=== PATIENT | male | born 1975 | race Caucasian/White ===

== ENCOUNTER 2019-11-14 16:13 | Emergency (ER) | payer BC ==
[2019-11-14] MEDS ORDERED: Azithromycin 250 MG Tab PO ONE (16:33)
--- NOTE | 2019-11-14 16:36 | EDM.PDOC ---
ED HPI GENERAL MEDICAL PROBLEM - General Chief Complaint: ENT Problem Stated Complaint: SINUS INFECTION, SEVERE COUGH Time Seen by Provider: 11/14/19 16:16 - History of Present Illness INITIAL COMMENTS - FREE TEXT/NARRATIVE: History of present illness: 44-year-old male presenting with cough and nasal congestion for the last 10 days that has been gradually progressing and developed difficulty breathing over the last few days. History of sleep apnea. No known ill exposures. No one else is sick at home. He does smoke. No chest pain. No fevers or chills. Review of systems: As per history of present illness and below otherwise all systems reviewed and negative. Past medical history: As per history of present illness and as reviewed below otherwise noncontributory. Sleep apnea Surgical history: As per history of present illness and as reviewed below otherwise noncontributory. Social history: No reported history of drug or alcohol abuse. Pack per day Family history: As per history of present illness and as reviewed below otherwise noncontributory. Physical exam: GEN: no acute distress, well appearing HEENT: Atraumatic, normocephalic, mucous membranes moist, nasal congestion, Neck: supple, nontender, trachea midline. Lungs: No respiratory distress. Mild expiratory wheezes Heart: Mildly tachycardic Abdomen: Soft, nondistended, nontender. Back: nontender Extremities: Atraumatic. Neurovascularly intact. Neuro: Awake, alert, oriented. Neuro Exam nonfocal. Skin: warm, dry, no lesions Diagnostics: [] Therapeutics: [] MDM: Impression: [] Plan: [] Definitive disposition and diagnosis as appropriate pending reevaluation and review of above. - Related Data Allergies Allergy/AdvReac Type Severity Reaction Status Date / Time No Known Allergies Allergy Verified 11/14/19 16:24 Home Meds: Home Meds Albuterol Sulfate [Proair Respiclick] 90 mcg IH Q6HR PRN #1 canister 11/14/19 [ Rx] Azithromycin [Zithromax] 250 mg PO DAILY #6 tab 11/14/19 [Rx] predniSONE [Prednisone] 60 mg PO DAILY 5 Days #15 tablet 11/14/19 [Rx] ED ROS ENT - Review of Systems Review Of Systems: See Below (See dictation) ED EXAM, ENT - Physical Exam Exam: See Below (See dictation) Course - Vital Signs Last Recorded V/S: Last Vital Signs Temp 96.6 F L 11/14/19 16:22 Pulse 109 H 11/14/19 16:22 Resp 22 H 11/14/19 16:22 BP 188/91 H 11/14/19 16:22 Pulse Ox 97 11/14/19 16:22 - Orders/Labs/Meds Labs: Laboratory Tests 11/14/19 Range/Units 17:13 SARS-CoV-2 RNA (RT-PCR) NEGATIVE (NEGATIVE) Meds: Medications Discontinued Medications Generic Name Dose Route Start Last Admin Trade Name Freq PRN Reason Stop Dose Admin Azithromycin 500 mg 11/14/19 16:33 11/14/19 17:07 Zithromax PO 11/14/19 16:34 500 mg ONETIME ONE Administration - Re-Assessments/Exams Free Text/Narrative Re-Assessment/Exam: 11/14/19 18:17 Patient in no acute distress. Chest x-ray negative., Raines virus swab negative. Will discharge. Departure - Departure Time of Disposition: 18:19 Disposition: Home, Self-Care 01 Clinical Impression: Bronchitis - Discharge Information Prescriptions: Albuterol Sulfate [Proair Respiclick] 90 mcg IH Q6HR PRN #1 canister PRN Reason: Dyspnea Azithromycin [Zithromax] 250 mg PO DAILY #6 tab predniSONE [Prednisone] 60 mg PO DAILY 5 Days #15 tablet Instructions: Shortness of Breath, Adult, Asak-[id number], Upper Respiratory Infection, Adult, Rgeq-[id number], Steps to Quit Smoking, Kvfw-[id number], How to Use a Metered Dose Inhaler, Acute Bronchitis, Adult, Ugmw-[id number], How to Use a Dry Powder Inhaler, Oprb-cu-Eaue Referrals: PCP,None [Primary Care Provider] - Forms: ED Department Discharge Additional Instructions: The following information is given to patients seen in the emergency department who are being discharged to home. This information is to outline your options for follow-up care. We provide all patients seen in our emergency department with a follow-up referral. The need for follow-up, as well as the timing and circumstances, are variable depending upon the specifics of your emergency department visit. If you don't have a primary care physician on staff, we will provide you with a referral. We always advise you to contact your personal physician following an emergency department visit to inform them of the circumstance of the visit and for follow-up with them and/or the need for any referrals to a consulting specialist. The emergency department will also refer you to a specialist when appropriate. This referral assures that you have the opportunity for follow-up care with a specialist. All of these measure are taken in an effort to provide you with optimal care, which includes your follow-up. Under all circumstances we always encourage you to contact your private physician who remains a resource for coordinating your care. When calling for follow-up care, please make the office aware that this follow-up is from your recent emergency room visit. If for any reason you are refused follow-up, please contact the [facility] Emergency Department at and asked to speak to the emergency department charge nurse. [facility] [address] [place] [id number] [address] Sepsis Event Note (ED) - Evaluation Sepsis Screening Result: No Definite Risk - Focused Exam Vital Signs: Vital Signs Temp Pulse Resp BP Pulse Ox 11/14/19 16:22 96.6 F L 109 H 22 H 188/91 H 97
--- NOTE | 2019-11-14 17:06 | CR ---
Chest: Portable view of the chest was obtained. Comparison: No previous chest x-ray. Heart is generous in size believed to be accentuated from portable technique as well as accentuated from patient body habitus. Upper mediastinum is normal. Lungs are clear with no acute parenchymal change. Bony structures are grossly intact. Impression: 1. Nothing acute is appreciated on portable chest x-ray. Diagnostic code #2 Study was dictated in MDT
== END 2019-11-14 18:30 | disposition home or self-care (01) ==
LOC: MW.ED 16:13
DX: J40 Bronchitis, not specified as acute or chronic (principal); Z20.828 Contact with and (suspected) exposure to other viral communicable diseases; Z79.899 Other long term (current) drug therapy
CPT/HCPCS: 71045; 87635; 99285; A9270; U0002

== ENCOUNTER 2020-11-03 23:08 | Emergency (ER) | payer BC ==
--- NOTE | 2020-11-03 23:27 | EDM.PDOC ---
ED HPI GENERAL MEDICAL PROBLEM - General Chief Complaint: ENT Problem Stated Complaint: SORE THROAT Time Seen by Provider: 11/03/20 23:16 - History of Present Illness INITIAL COMMENTS - FREE TEXT/NARRATIVE: History of present illness: [] The patient complains of a sore throat for about a week. Today he ate something crunchy and he had blood spit up out of his mouth. Sore throat is associated with fullness in the anterior neck. He has a cough but he says usually because because he smokes. Patient planes of swelling in both lower extremities but the right is markedly more than the left. 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 Review of systems: As per history of present illness and below otherwise all systems reviewed and negative. Past medical history: As per history of present illness and as reviewed below otherwise noncontributory. Surgical history: As per history of present illness and as reviewed below otherwise noncontributory. Social history: No reported history of drug or alcohol abuse. Family history: As per history of present illness and as reviewed below otherwise noncontributory. Physical exam: Constitutional - well developed, well-nourished and in no acute distress HEENT -oropharynx reveals prominent vessels and some areas where there is actually some seepage of bright red blood. He has no trismus or psilocin. There are tender nodes in the submandibular area. Normocephalic, no evidence of trauma - external nose and mouth normal - no mass in neck and no JVD - mucosae moist EYES - full EOM, PERRL, no icterus - no evidence of inflammation, injection, or drainage Respiratory - no respiratory distress, equal bilateral expansion, lungs scattered light wheezes Cardiovascular - Regular Rhythm with S1 and S2 appreciated and no murmur, gallop or rub. GI - abdomen soft without distension or organomegaly - normal bowel sounds - no guard or rebound Musculoskeletal no gross deformity of long bones or joints -tender swelling in the right lower extremity and slight swelling of the left lower extremity in the right lower extremity below the knee is quite a bit bigger than the left and erythematous without significant heat. Neurologic - Alert and oriented times four - CN II-XII grossly intact - motor sensory and coordination symmetrically normal Psychiatric - appropriate mood and affect with normal thought content Hematologic - No petechiae or purpura - mucosa appropriate color and sclera not pale - normal nail bed color and refill Integument - no rash or evidence of trauma - normal turgor Diagnostics: [] Therapeutics: [] Impression: [] Plan: [] Definitive disposition and diagnosis as appropriate pending reevaluation and review of above. Posterior Throat Pain Score (Numeric/FACES): 3 - Related Data Allergies Allergy/AdvReac Type Severity Reaction Status Date / Time No Known Allergies Allergy Verified 11/14/19 16:24 Home Meds: Home Meds Albuterol Sulfate [Proair Respiclick] 90 mcg IH Q6HR PRN #1 canister 11/14/19 [Rx] Azithromycin [Zithromax] 250 mg PO DAILY #6 tab 11/14/19 [Rx] predniSONE [Prednisone] 60 mg PO DAILY 5 Days #15 tablet 11/14/19 [Rx] cephALEXin [Cephalexin] 500 mg PO BID #14 capsule 11/04/20 [Rx] Past Medical History Cardiovascular History: Reports: High Cholesterol, Hypertension Respiratory History: Reports: Sleep Apnea Other Respiratory History: with cpap Gastrointestinal History: Reports: None Genitourinary History: Reports: None Musculoskeletal History: Reports: None Neurological History: Reports: None Psychiatric History: Reports: None Endocrine/Metabolic History: Reports: None Hematologic History: Reports: None Immunologic History: Reports: None Oncologic (Cancer) History: Reports: None Dermatologic History: Reports: None - Infectious Disease History Infectious Disease History: Reports: Chicken Pox - Past Surgical History Head Surgeries/Procedures: Reports: None HEENT Surgical History: Reports: Tonsillectomy Social & Family History - Caffeine Use Caffeine Use: Reports: Energy Drinks, Soda ED ROS GENERAL - Review of Systems Review Of Systems: Comprehensive ROS is negative, except as noted in HPI. ED EXAM, GENERAL - Physical Exam Exam: See Below Free Text/Narrative:: My physical exam is in the HPI Course - Vital Signs Text/Narrative:: 12:01 AM the patient has a large lymph node in the swollen side. The right groin has a lymph node and more swelling in the left side. This suggests an infectious cause of his swelling. Diagnosis pharyngitis and cellulitis right lower extremity. Plan antimicrobials and follow-up closely. Last Recorded V/S: Last Vital Signs Temp 36.3 C 11/03/20 23:21 Pulse 106 H 11/03/20 23:21 Resp 19 11/03/20 23:21 BP 152/81 H 11/03/20 23:21 Pulse Ox 96 11/03/20 23:21 - Orders/Labs/Meds Orders: Active Orders 24 hr Category Date Time Status Venous Doppler Lwr Ext Rt [US] Stat Exams 11/03/20 23:33 Ordered CORONAVIRUS COVID-19 PHILIP [MOLEC] Stat Lab 11/04/20 00:00 Received Labs: Laboratory Tests 11/03/20 Range/Units 23:30 Group A Strep (PCR) NOT DETECTED (NOT DETECT) Meds: Medications Discontinued Medications Generic Name Dose Route Start Last Admin Trade Name Freq PRN Reason Stop Dose Admin Cephalexin 500 mg 11/04/20 00:07 Cephalexin 500 Mg Cap PO 11/04/20 00:08 ONETIME ONE Departure - Departure Time of Disposition: 00:10 Disposition: Home, Self-Care 01 Clinical Impression: Pharyngitis, Cellulitis of lower extremity, Inguinal adenopathy - Discharge Information Prescriptions: cephALEXin [Cephalexin] 500 mg PO BID #14 capsule Instructions: Cellulitis, Adult, [id number], Pharyngitis, [id number] Referrals: Dov Butts MD [Primary Care Provider] - Forms: ED Department Discharge Additional Instructions: Gargle warm salt water or drink soup. There are [id number] sprays for sore throat pain like Cepacol and Cepastat. Elevate the legs. Get medical attention right away if you get worse. Sepsis Event Note (ED) - Evaluation Sepsis Screening Result: No Definite Risk - Focused Exam Vital Signs: Vital Signs Temp Pulse Resp BP Pulse Ox 11/03/20 23:21 36.3 C 106 H 19 152/81 H 96 - My Orders Last 24 Hours: My Active Orders 11/03/20 23:33 Venous Doppler Lwr Ext Rt [US] Stat 11/04/20 00:00 CORONAVIRUS COVID-19 PHILIP [MOLEC] Stat - Assessment/Plan Last 24 Hours: My Active Orders 11/03/20 23:33 Venous Doppler Lwr Ext Rt [US] Stat 11/04/20 00:00 CORONAVIRUS COVID-19 PHILIP [MOLEC] Stat
[2020-11-04] MEDS ORDERED: Cephalexin 500 MG Cap PO ONE (00:07)
--- NOTE | 2020-11-04 00:15 | US ---
INDICATION: Leg swelling and redness right calf and foot TECHNIQUE: Ultrasound venous duplex right lower extremity. Merchant-scale, color Doppler, and spectral Doppler imaging were performed with compression and augmentation. COMPARISON: None FINDINGS: Deep veins: The right common femoral, femoral, popliteal, and visualized calf veins are fully compressible, demonstrate normal color flow, and normal response to mechanical augmentation. The Duplex Doppler waveforms are normal in appearance. The visualized contralateral left common femoral vein is patent. Superficial veins: The visualized greater saphenous and superficial veins of the leg and calf are unremarkable. Soft tissue: Subcutaneous edema is present within the calf. Inguinal lymph nodes are present measuring up to 10 mm. IMPRESSIONS: 1. No sonographic evidence of acute deep venous thrombosis seen. 2. Inguinal adenopathy is present and clinical correlation follow-up is recommended. Dictated by Dante Richards MD @ 11/04/2020 12:12:54 AM Dictated by: Dante Richards MD @ 11/04/2020 00:12:57 (Electronically Signed)
== END 2020-11-04 01:09 | disposition home or self-care (01) ==
LOC: MW.ED 23:08
DX: J02.9 Acute pharyngitis, unspecified (principal); L03.116 Cellulitis of left lower limb; R59.0 Localized enlarged lymph nodes; I10 Essential (primary) hypertension; Z20.822 Contact with and (suspected) exposure to COVID-19
CPT/HCPCS: 87635; 87651; 93971; 99284; A9270; 99283; U0002

== ENCOUNTER 2020-11-04 08:47 | Emergency (ER) | payer BC ==
--- NOTE | 2020-11-04 09:40 | EDM.PDOC ---
ED HPI GENERAL MEDICAL PROBLEM - General Chief Complaint: ENT Problem Stated Complaint: blood in throat Time Seen by Provider: 11/04/20 09:08 - History of Present Illness INITIAL COMMENTS - FREE TEXT/NARRATIVE: HISTORY AND PHYSICAL: History of present illness: This is a 45-year-old gentleman who presents ER today complaining of pain and discomfort to his right posterior pharynx. Patient reports that he came to the ED yesterday for evaluation of this. Patient reports while he was eating dinner he started eating some potato chips and felt like the potato chips injured his posterior pharynx. Patient reports he been having pain and discomfort with swallowing and a hoarse voice since. Patient denies any recent fevers, shakes, chills, nausea, vomiting, diarrhea, dysuria, frequency, urgency. Patient reports when he was here earlier last night he also complains of some pain and discomfort to his right thigh. An ultrasound was performed which was negative for DVT however with a red warm thigh, the decision was made to start him on antibiotics for possible cellulitis. Patient also had concern regarding possible strep throat with his pain and discomfort. Although the strep screen was negative, a culture is currently pending and the patient is already on antibiotics for cellulitis which would also cover him if his strep test did come back positive. Patient reports no recent weight loss. Patient does smoke 1 pack/day. Patient reports that he has used chewing tobacco in the distant past but a minimal amount. Patient reports that he started noticing a change in his voice approximately 3 to 4 days ago when it became much lower and hoarse. Review of systems: As per history of present illness and below otherwise all systems reviewed and negative. Past medical history: As per history of present illness and as reviewed below otherwise noncontributory. Surgical history: As per history of present illness and as reviewed below otherwise noncontributory. Social history: No reported history of drug abuse. Family history: As per history of present illness and as reviewed below otherwise noncontributory. Physical exam: This patient was seen and evaluated during the 2019 SARS-CoV-2 novel coronavirus pandemic period. Community viral transmission is ongoing at time of this encounter and the emergency department is operating under pandemic response procedures. Constitutional: Patient is oriented to person, place, and time. Appears well- developed and well-nourished. No distress. HEENT: Moist mucous membranes Head: Normocephalic and atraumatic Eyes: Right eye exhibits no discharge. Left eye exhibits no discharge. No scleral icterus Neck: Normal range of motion. No tracheal deviation present. Cardiovascular: Normal rate and regular rhythm. Pulmonary: Effort normal, no respiratory distress. Abdominal: No distention Musculoskeletal: Normal range of motion Neurologic: Alert and oriented to person, place and time. Skin: [place], warm and dry. Psychiatric: Normal mood and affect. Behavior is normal. Judgment and thought content normal. Nursing note and vital signs have been reviewed Patient's ER physical exam is significant for hoarse voice. Patient appears to have intermittent episodes of gagging while talking and feels like there is something in the back of his throat that is gagging him. On direct visual examination, I did not visualize any significant abnormality. I do not see any evidence of active bleeding, bruising, swelling, asymmetry to his uvula, asymmetry to the soft palate, stridor, respiratory compromise. Diagnostics: [] CT soft tissue neck demonstrates a bulky mass centered at the base of the tongue and vallecula with involvement of the right greater than left inferior fossa with pillars concerning for a developing malignancy such as a tonsillar cancer versus squamous cell cancer. There are enlarged right greater than left level 4 cervical lymph nodes. There is moderate effacement of the oropharynx. Patient's labs are within normal limits. Therapeutics: [] Assessment and plan: This is a 45-year-old gentleman who presents ER today with second visit for discomfort to the back of his throat after what he believes is injuring it with potato chips that he was eating yesterday before dinner. We will obtain a CBC as well as a BMP for creatinine. Patient will have a CT of his soft tissue neck with IV contrast to evaluate for any hematoma or other neck pathology that might be giving him these symptoms. At this time, patient is not showing any evidence of respiratory distress or compromise. 3:52 PM: CT scan of soft tissue neck demonstrates a mass at the base of the tongue with effacement of the oropharynx however no significant airway compromise is identified on CT scan. Patient's physical exam multiple times in ED reveals no evidence of stridor or airway decompensation. Patient has continued to have hemoptysis throughout the last 6 hours to total of approximately 200 cc of dark blood obtained in a emesis basin. Case was discussed with Dr. Guillen at [facility]. He has recommended patient be transferred to [place] to see Dr. Rajput for management of a complicated head and neck cancer. Although Dr. Guillen would be happy to assist this with patient's active bleeding on an emergent basis. Given that the patient has remained stable hemodynamically in the ED over the last several hours it seems like the patient would be best served to be transferred to [place] to see Dr. Rajput for assistance with definitive management. Case was discussed with Dr. Garcia at [facility] who has assisted us greatly with discussing the case with Dr. Rajput who is currently not on-call. After calling back, Dr. Garcia has agreed to assist this and accept patient to [facility] for assistance with his active bleeding and definitive management. I have discussed the case with Dr. mendoza who is the hospitalist on-call who has had the patient for transfer on behalf of the ENT service. At this time, the patient's airway is stable and does not need intubation. He will be transferred with fixed wing to expedite his transfer there. I have discussed all this with the patient and he is in complete agreement with the current plan. Critical Care: The high probability of sudden, clinically significant deterioration in the patient's condition required the highest level of my preparedness to intervene urgently. The services I provided to this patient were to treat and/or prevent clinically significant deterioration. Services included the following: chart data review, reviewing nursing notes and/or old charts, documentation time, windows consultant collaboration regarding findings and treatment options, medication orders and management, direct patient care, vital sign assessments and ordering, interpreting and reviewing diagnostic studies/lab tests. Aggregate critical care time includes only time during which I was engaged inwork directly related to the patient's care, as described above, whether at the bedside or elsewhere in the Emergency Department. It did not include time spent performing other reported procedures or the services of residents, students, nurses or physician assistants. Critical Care Time: 35 minutes Definitive disposition and diagnosis as appropriate pending reevaluation and review of above. throat Pain Score (Numeric/FACES): 3 - Related Data Allergies Allergy/AdvReac Type Severity Reaction Status Date / Time No Known Allergies Allergy Verified 11/04/20 09:17 Home Meds: Home Meds cephALEXin [Cephalexin] 500 mg PO BID #14 capsule 11/04/20 [Rx] Past Medical History Cardiovascular History: Reports: High Cholesterol, Hypertension Respiratory History: Reports: Sleep Apnea Other Respiratory History: with cpap Gastrointestinal History: Reports: None Genitourinary History: Reports: None Musculoskeletal History: Reports: None Neurological History: Reports: None Psychiatric History: Reports: None Endocrine/Metabolic History: Reports: None Hematologic History: Reports: None Immunologic History: Reports: None Oncologic (Cancer) History: Reports: None Dermatologic History: Reports: None - Infectious Disease History Infectious Disease History: Reports: Chicken Pox - Past Surgical History Head Surgeries/Procedures: Reports: None HEENT Surgical History: Reports: Tonsillectomy Social & Family History - Family History Family Medical History: No Pertinent Family History - Tobacco Use Packs/Tins Daily: 1 - Caffeine Use Caffeine Use: Reports: Coffee, Energy Drinks - Recreational Drug Use Recreational Drug Use: No ED ROS GENERAL - Review of Systems Review Of Systems: See Below ED EXAM, GENERAL - Physical Exam Exam: See Below Course - Vital Signs Last Recorded V/S: Last Vital Signs Temp 96.6 F L 11/04/20 09:14 Pulse 105 H 11/04/20 09:14 Resp BP 116/77 11/04/20 09:14 Pulse Ox 95 11/04/20 09:14 - Orders/Labs/Meds Orders: Active Orders 24 hr Category Date Time Status CORONAVIRUS COVID-19 PHILIP [MOLEC] Stat Lab 11/04/20 12:11 Stop Req Labs: Laboratory Tests 11/04/20 11/04/20 Range/Units 09:21 09:21 WBC 10.03 (4.0-11.0) K/uL RBC 4.51 (4.50-5.90) M/uL Hgb 11.7 L (13.0-17.0) g/dL Hct 36.6 L (38.0-50.0) % MCV 81.2 (80.0-98.0) fL MCH 25.9 L (27.0-32.0) pg MCHC 32.0 (31.0-37.0) g/dL RDW Std Deviation 43.2 (28.0-62.0) fl RDW Coeff of Darcie 15 (11.0-15.0) % Plt Count 251 (150-400) K/uL MPV 10.60 (7.40-12.00) fL Neut % (Auto) 65.3 (48.0-80.0) % Lymph % (Auto) 12.1 L (16.0-40.0) % [place] % (Auto) 6.3 (0.0-15.0) % Eos % (Auto) 15.6 H (0.0-7.0) % Baso % (Auto) 0.7 (0.0-1.5) % Neut # (Auto) 6.6 H (1.4-5.7) K/uL Lymph # (Auto) 1.2 (0.6-2.4) K/uL [place] # (Auto) 0.6 (0.0-0.8) K/uL Eos # (Auto) 1.6 H (0.0-0.7) K/uL Baso # (Auto) 0.1 (0.0-0.1) K/uL Nucleated RBC % 0.0 /100WBC Nucleated RBCs # 0 K/uL Sodium 142 (136-148) mmol/L Potassium 4.5 (3.5-5.1) mmol/L Chloride 107 (98-107) mmol/L Carbon Dioxide 24.8 (21.0-32.0) mmol/L BUN 21 H (7.0-18.0) mg/dL Creatinine 1.0 (0.8-1.3) mg/dL Est Cr Clr Drug Dosing 99.35 mL/min Estimated GFR (MDRD) > 60.0 ml/min Glucose 111 H (74-106) mg/dL Calcium 8.3 L (8.5-10.1) mg/dL Meds: Medications Discontinued Medications Generic Name Dose Route Start Last Admin Trade Name Paramjitq PRN Reason Stop Dose Admin Iopamidol 80 ml 11/04/20 10:42 11/04/20 10:43 Iopamidol 755 Mg/Ml 500 Ml Multipack Bottle IVPUSH 11/04/20 10:43 80 ml ONETIME STA Administration Departure - Departure Time of Disposition: 15:56 Disposition: DC/Tfer to Acute Hospital 02 Condition: Good Clinical Impression: Hemoptysis, Oropharyngeal mass, Tongue mass - Discharge Information Referrals: Dov Butts MD [Primary Care Provider] - Forms: ED Department Discharge Sepsis Event Note (ED) - Evaluation Sepsis Screening Result: Possible Sepsis Risk - Focused Exam Vital Signs: Vital Signs Temp Pulse BP Pulse Ox 11/04/20 09:14 96.6 F L 105 H 116/77 95 - My Orders Last 24 Hours: My Active Orders 11/04/20 12:11 CORONAVIRUS COVID-19 PHILIP [MOLEC] Stat - Assessment/Plan Last 24 Hours: My Active Orders 11/04/20 12:11 CORONAVIRUS COVID-19 PHILIP [MOLEC] Stat
[2020-11-04 09:54] LABS: BLOOD UREA NITROGEN,BUN 21 mg/dL (7.0-18.0); CARBON DIOXIDE,CO2 24.8 mmol/L (21.0-32.0); CHLORIDE,CL 107 mmol/L (98-107); GLUCOSE RANDOM 111 mg/dL (74-106); POTASSIUM,K 4.5 mmol/L (3.5-5.1); SODIUM,NA 142 mmol/L (136-148)
[2020-11-04] MEDS ORDERED: Iopamidol 755 MG/ML 500 ML Multipack Bottle IVPUSH STA (10:42)
--- NOTE | 2020-11-04 11:35 | CT ---
For Patients: As a result of the 21st Century Cures Act, medical imaging exams and procedure reports are released immediately into your electronic medical record. You may view this report before your referring provider. If you have questions, please contact your health care provider. Indication: Discomfort, pain in the right posterior pharynx, spitting up blood Technique: Volumetric multidetector CT images of the cervical soft tissues were obtained after the administration of low osmolar intravenous contrast. 80 cc Isovue 370 low osmolar intravenous contrast Comparison: None available. Findings: The partially visualized brain parenchyma is normal in attenuation without evidence of abnormal enhancement. The orbits and their contents are within normal limits. The paranasal sinuses are clear. The mastoid air cells are clear. There is minimal prominence of the adenoid tissues with otherwise clear bilateral fossa of Rosenmuller. There is demonstration of a bulky mass arising within the base of tongue involving the right greater than left faucial pillars and palatine tonsils. Grossly this measures 5.2 x 2.9 centimeters in greatest dimension. There is marked effacement of the vallecula. The remaining hypopharynx is otherwise grossly preserved. The deep spaces of the neck are otherwise preserved. The vocal folds are nonthickened with symmetrical appearance. The thyroid gland is normal in attenuation. There are enlarged right greater than left level 4 cervical lymph nodes seen best on series 201, image 125 measuring 1.7 centimeters. The jugular veins are patent. The carotid arteries demonstrate no significant atherosclerotic narrowing. There is partial visualization of a left-sided pleural effusion with scattered interstitial and airspace opacities likely representing infiltrates. The cervical vertebral body heights are grossly maintained with moderate degenerative disc disease. There is no evidence of displaced fracture or dislocation. Impression: Demonstration of a bulky mass centered at the base of tongue and vallecula with involvement of the right greater than left inferior faucial pillars concerning for a developing malignancy such as tonsillar cancer versus squamous cell cancer. There are enlarged right greater than left level 4 cervical lymph nodes. There is moderate effacement of the oropharynx. Recommend further evaluation with direct visualization and tissue sampling to exclude malignancy. Partial visualization of a left-sided pleural effusion with scattered airspace opacities in the partially seen left upper greater than right upper lobes likely representing developing infiltrates. Please note that all CT scans at this facility use dose modulation, iterative reconstruction, and/or weight-based dosing when appropriate to reduce radiation dose to as low as reasonably achievable. Dictated by Abdirizak Ely MD @ 11/04/2020 11:34:[address] Abdirizak Ely @ Nov 04 2020 11:34AM
== END 2020-11-04 16:00 ==
LOC: MW.ED 08:47
DX: R04.2 Hemoptysis (principal); R22.0 Localized swelling, mass and lump, head
CPT/HCPCS: 36415; 70491; 80048; 85025; 99284; Q9967; 99291